=== PATIENT | male | born 2000 | race Caucasian/White ===

== ENCOUNTER 2022-12-10 11:26 | Inpatient (IN) | payer MEDICAID ==
[~2022-12-10] VITALS: Ht 177.8 cm; Wt 64.8 kg
[2022-12-10] MEDS ORDERED: cefTRIAXone 1GM/50ML D5W 50 ML IV ONE (13:30)
[2022-12-10] MEDS ORDERED: CLINDAMYCIN 600MG IV 50 ML IV ONE (13:30)
[2022-12-10 13:43] LABS: Basophils # (auto) 0 10 ^3/uL (0-0.2); Basophils % (auto) 0.5 % (0.0-2.0); Eosinophils # (auto) 0 10 ^3/uL (0-0.8); Eosinophils % (auto) 0.6 % (0.0-7.0); Hematocrit 46.6 % (41.0-53.0); Hemoglobin 16.3 g/dL (13.5-17.5); Lymphocytes # (auto) 1.5 10 ^3/uL (0.4-5.4); Lymphocytes % (auto) 23.1 % (10.0-50.0); Mean Corpuscular Hemoglobin 32.1 pg (28.0-32.0); Mean Corpuscular Hgb Conc. 35.1 g/dL (32.0-36.0); Mean Corpuscular Volume 91.5 fL (80.0-100.0); Monocytes # (auto) 0.4 10 ^3/uL (0-1.3); Neutrophils # (auto) 4.6 10 ^3/uL (1.6-8.6); Neutrophils % (auto) 69.8 % (37.0-80.0); Nucleated Red Blood Cells % 0.4 %; Red Blood Cells 5.09 10^6/uL (4.5-5.90); Red Cell Distribution Width 13.9 % (11.8-14.3); White Blood Cell 6.6 10^3/uL (4.4-10.8)
[2022-12-10 13:59] LABS: Calcium 9.7 mg/dL (8.5-10.1)
[2022-12-10 14:51] LABS: BUN/Creatinine Ratio 23.6
[2022-12-10] MEDS ORDERED: ACETAMINOPHEN 325 MG TAB PO PRN (18:00)
[2022-12-10] MEDS ORDERED: HYDROcodone-ACET 5/325MG TAB PO PRN (18:00)
[2022-12-10] MEDS ORDERED: ONDANSETRON HCL 4 MG/2 ML VIAL IV PRN (18:00)
[2022-12-10] MEDS ORDERED: CLON0.1T PO (18:11)
[2022-12-10] MEDS ORDERED: RISP1TAB63 PO (18:11)
[2022-12-10] MEDS ORDERED: BENZ1TAB2 PO (18:11)
[2022-12-10] MEDS ORDERED: METH-503 PO (18:11)
[2022-12-10] MEDS: METHYLPHENIDATE HCL 10 MG PO SCH (21:55)
[2022-12-10] MEDS: BENZTROPINE MESY 0.5 MG TAB PO SCH (21:56)
[2022-12-10] MEDS: risperiDONE 1 MG TAB PO SCH (21:56)
[2022-12-10] MEDS: cloNIDine HCL 0.1 MG TAB PO SCH (21:59)
[2022-12-10] MEDS: CLINDAMYCIN 300MG IV 50 ML IV SCH (22:00)
[2022-12-10] MEDS: SODIUM CHLOR 0.9% PF (SALINE LOCK) 10ML VIAL/SYR IV SCH (22:03)
[2022-12-11 05:38] LABS: Basophils # (auto) 0.1 10 ^3/uL (0-0.2); Basophils % (auto) 1.1 % (0.0-2.0); Eosinophils # (auto) 0.1 10 ^3/uL (0-0.8); Eosinophils % (auto) 1.8 % (0.0-7.0); Hematocrit 42.1 % (41.0-53.0); Hemoglobin 14.7 g/dL (13.5-17.5); Lymphocytes # (auto) 1.9 10 ^3/uL (0.4-5.4); Lymphocytes % (auto) 39.4 % (10.0-50.0); Mean Corpuscular Hemoglobin 31.8 pg (28.0-32.0); Mean Corpuscular Hgb Conc. 34.9 g/dL (32.0-36.0); Monocytes # (auto) 0.4 10 ^3/uL (0-1.3); Monocytes % (auto) 8.8 % (0.0-12.0); Neutrophils # (auto) 2.4 10 ^3/uL (1.6-8.6); Neutrophils % (auto) 48.9 % (37.0-80.0); Nucleated Red Blood Cells % 0.1 %; Red Blood Cells 4.62 10^6/uL (4.5-5.90); White Blood Cell 4.8 10^3/uL (4.4-10.8)
[2022-12-11] MEDS: SODIUM CHLOR 0.9% PF (SALINE LOCK) 10ML VIAL/SYR IV SCH ×3 (05:45→21:28)
[2022-12-11 05:50] LABS: Albumin 3.9 g/dL (3.4-5.0); Calcium 9.2 mg/dL (8.5-10.1); Potassium 3.9 mmol/L (3.5-5.1)
[2022-12-11 06:00] LABS: Bilirubin, Total 1.6 mg/dL (0.2-1.0)
[2022-12-11] MEDS: CLINDAMYCIN 300MG IV 50 ML IV SCH ×3 (06:25→21:27)
[2022-12-11] MEDS: cefTRIAXone 1GM/50ML D5W 50 ML IV SCH (09:30)
[2022-12-11] MEDS: METHYLPHENIDATE HCL 10 MG PO SCH ×3 (11:52→21:23)
[2022-12-11] MEDS: PANTOPRAZOLE 40 MG/10 ML VIAL INJ IV SCH (11:52)
[2022-12-11] MEDS: cloNIDine HCL 0.1 MG TAB PO SCH ×2 (11:53→21:18)
[2022-12-11] MEDS: BENZTROPINE MESY 0.5 MG TAB PO SCH ×2 (11:54→21:18)
[2022-12-11] MEDS: risperiDONE 1 MG TAB PO SCH ×2 (11:55→21:18)
[2022-12-11] MEDS ORDERED: HALOPERIDOL LACTATE 5 MG/ML INJ VIAL IM ONE (19:15)
[2022-12-11 23:08] VITALS: BP 143/82
[2022-12-12 05:00] VITALS: BP 117/69
[2022-12-12] MEDS: SODIUM CHLOR 0.9% PF (SALINE LOCK) 10ML VIAL/SYR IV SCH ×3 (06:00→21:38)
[2022-12-12] MEDS: CLINDAMYCIN 300MG IV 50 ML IV SCH ×3 (06:00→21:38)
[2022-12-12 09:00] VITALS: BP 153/81
[2022-12-12] MEDS: METHYLPHENIDATE HCL 10 MG PO SCH ×2 (10:00→21:38)
[2022-12-12] MEDS: risperiDONE 1 MG TAB PO SCH ×2 (10:58→21:39)
[2022-12-12] MEDS: cloNIDine HCL 0.1 MG TAB PO SCH ×3 (10:58→23:00)
[2022-12-12] MEDS: cefTRIAXone 1GM/50ML D5W 50 ML IV SCH (10:59)
[2022-12-12] MEDS: BENZTROPINE MESY 0.5 MG TAB PO SCH ×2 (10:59→21:39)
[2022-12-12] MEDS: PANTOPRAZOLE 40 MG/10 ML VIAL INJ IV SCH (10:59)
[2022-12-12 13:00] VITALS: BP 131/71
[2022-12-12] MEDS: DOCUSATE SOD 100 MG CAP PO PRN (15:22)
[2022-12-12 17:09] VITALS: BP 110/53
[2022-12-12 20:00] VITALS: BP 110/53
[2022-12-12 22:00] VITALS: BP 135/79
[2022-12-13 05:00] VITALS: BP 102/64
[2022-12-13] MEDS: CLINDAMYCIN 300MG IV 50 ML IV SCH ×2 (05:15→15:27)
[2022-12-13] MEDS: SODIUM CHLOR 0.9% PF (SALINE LOCK) 10ML VIAL/SYR IV SCH ×3 (05:16→21:32)
[2022-12-13] MEDS: cefTRIAXone 1GM/50ML D5W 50 ML IV SCH (09:32)
[2022-12-13] MEDS: BENZTROPINE MESY 0.5 MG TAB PO SCH ×2 (09:34→21:29)
[2022-12-13] MEDS: risperiDONE 1 MG TAB PO SCH ×2 (09:34→21:29)
[2022-12-13] MEDS: PANTOPRAZOLE 40 MG/10 ML VIAL INJ IV SCH (09:35)
[2022-12-13 13:00] VITALS: BP 135/81
[2022-12-13 17:27] VITALS: BP 142/95
[2022-12-13] MEDS: METHYLPHENIDATE HCL 10 MG PO SCH (21:33)
[2022-12-13] MEDS: cloNIDine HCL 0.1 MG TAB PO SCH (21:37)
[2022-12-13 22:00] VITALS: BP 126/75
[2022-12-14 05:00] VITALS: BP 117/64
[2022-12-14] MEDS: SODIUM CHLOR 0.9% PF (SALINE LOCK) 10ML VIAL/SYR IV SCH (05:12)
[2022-12-14 09:00] VITALS: BP 107/61
[2022-12-14] MEDS: cefTRIAXone 1GM/50ML D5W 50 ML IV SCH (09:49)
[2022-12-14] MEDS: METHYLPHENIDATE HCL 10 MG PO SCH (09:50)
[2022-12-14] MEDS: BENZTROPINE MESY 0.5 MG TAB PO SCH (09:51)
[2022-12-14] MEDS: risperiDONE 1 MG TAB PO SCH (09:51)
[2022-12-14] MEDS: DOCUSATE SOD 100 MG CAP PO PRN (09:52)
[2022-12-14] MEDS: cloNIDine HCL 0.1 MG TAB PO SCH (09:52)
[2022-12-14 13:00] VITALS: BP 100/58
[2022-12-14] MEDS ORDERED: CEPH500C PO (17:11)
[2022-12-14 18:41] VITALS: BP 110/65
== END 2022-12-14 19:10 | disposition home or self-care (01) | DRG 383 ==
LOC: ER 11:26 → OVERFLOW 17:59 → EAST 12-11 22:40 → WEST WING 12-13 17:41
PROVIDERS: ADMIT Nurse Practitioner Family; ATTEND Student in an Organized Health Care Education/Training Program
DX: L03.115 Cellulitis of right lower limb (principal); A46 Erysipelas; L03.116 Cellulitis of left lower limb; G80.9 Cerebral palsy, unspecified; L53.8 Other specified erythematous conditions; Z20.822 Contact with and (suspected) exposure to COVID-19
CPT/HCPCS: 36415; 80048; 80053; 83605; 85025; 87040; 87426; 93970; 96365; 96367; C9113; G0378; J0696; J3490